=== PATIENT | female | born 1975 | race Caucasian/White ===

== ENCOUNTER 2018-12-01 19:28 | Observation (INO) ==
--- NOTE | 2018-12-01 19:41 | Emergency Department Note ---
Disposition Clinical Impression: Syncope Disposition: Admitted As Inpatient Condition: Good Time of Disposition: 18:45 General Adult HPI - General Chief complaint: ED Syncope Stated complaint: syncope Time Seen by Provider: 12/01/18 19:30 Source: patient Mode of arrival: private vehicle Limitations: no limitations Nursing Notes Reviewed: Yes Vital Signs Reviewed: Yes - History of Present Illness HPI Narrative: Patient was mowing grass today got markedly portion had an "out of body experience" and passed out. According to family she is unconscious for about a minute. Her only complaint is of her lips and oral sores she hit her lip on something. She denies any headache chest pain shortness of breath belly pain diarrhea rashes or other complaints. She says she did not usual state of health. 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 Review of Systems: As Per HPI Constitutional: Denies: fever, chills, weakness, weight change Eyes: Denies: eye pain, eye discharge, vision change ENT ED: Reports: as per HPI. Denies: ear pain, throat pain, dental pain, hearing loss, epistaxis, congestion, dysphagia Cardiovascular: Denies: chest pain, palpitations, dyspnea on exertion, edema, syncope Respiratory: Denies: cough, dyspnea, wheezes, hemoptysis, stridor Gastrointestinal: Denies: abdominal pain, nausea, vomiting, diarrhea, constipation, hematemesis, melena, hematochezia Genitourinary: Denies: dysuria, frequency, hematuria, discharge Musculoskeletal: Denies: back pain, neck pain, arthralgia, myalgia Integumentary: Denies: rash, abrasion, lesions Neurological: Denies: headache, weakness, numbness, paresthesias, confusion, abnormal gait, vertigo Psychiatric: Denies: anxiety, depression, suicidal thoughts, homicidal thoughts, auditory hallucinations, visual hallucinations Endocrine: Denies: fatigue Hematological/Lymphatic: Denies: easy bleeding, easy bruising Allergic/Immunologic: Denies: facial swelling, urticaria Past Medical History - Past Medical History Attestation: Yes The following information was validated with the patient. Source: patient, nursing notes reviewed Medical history: Reports: thyroid disease Psychiatric history: Reports: no psych history - Social History Smoking Status: Never smoker Smokeless Tobacco Status: No Alcohol use: Reports: none Drug use: Reports: none Physical Exam - General Limitations: no limitations General appearance: alert, in no apparent distress - Head Head exam: atraumatic, normocephalic, normal inspection - Eye Eye exam: Present: normal appearance, PERRL, EOMI - ENT ENT exam: other (Small abrasion to the upper lip.) - Neck Neck exam: Present: normal inspection, full ROM, trachea midline - Chest Chest inspection: Present: normal inspection, symmetric chest wall rise - Respiratory Respiratory exam: Present: normal lung sounds bilaterally - Cardiovascular Cardiovascular exam: Present: regular rate, normal rhythm, normal heart sounds - Abdominal Exam Abdominal exam: Present: soft, Non-Tender, normal bowel sounds - Extremities Exam Extremities exam: Present: normal inspection, full ROM. Absent: tenderness, pedal edema - Back Exam Back exam: Present: normal inspection, full ROM. Absent: tenderness - Neurological Exam Neurological exam: Present: alert, oriented X3 - Psychiatric Psychiatric exam: Present: normal affect, normal mood - Skin Skin exam: Present: warm, dry, intact, normal color Medical Decision Making - MDM Narrative Medical decision making narrative: I reviewed the patient's medication list. Discussed case Dr. Dhaliwal's graciously accepted admission - Lab Data Lab results reviewed: Yes I reviewed the patient's lab results. - Radiology Data Radiology results reviewed: Yes I reviewed the patient's radiology results. - EKG Data EKG #1 EKG attestation: Yes I reviewed and interpreted this EKG. EKG results narrative: EKG shows sinus rhythm rate 81 bpm WA interval is 158 ms. QRS duration 102 ms. QT QTC intervals 398 and 460 ms respectively R axis 48 degrees. No acute ischemia is appreciated.
[2018-12-01 19:59] LABS: Basophils # 0.1 K/mcL (0.0-0.2); Basophils % 0.5 %; Eosinophils # 0.1 K/mcL (0.0-0.6); Eosinophils % 0.8 %; Hematocrit 38.2 % (35.3-44.9); Hemoglobin 12.1 g/dL (11.5-15.4); Immature Granulocytes % 0.2 % (0-4); Lymphocytes # 3.3 K/mcL (0.6-4.6); Lymphocytes % 32.2 %; Mean Corpuscular HGB Conc 31.7 g/dL (31.6-35.5); Mean Corpuscular Hemoglobin 24.9 pg (28.0-33.3); Mean Corpuscular Volume 78.6 fL (83.0-100.0); Monocytes # 0.5 K/mcL (0.0-1.3); Monocytes % 4.6 %; Neutrophils # 6.4 K/mcL (1.6-8.9); Platelet Count 270 K/mcL (140-400); Red Blood Count 4.86 M/mcL (3.82-4.97); Red Cell Distribution Width 14.7 % (11.5-14.5); Segmented Neutrophils % 61.7 %; White Blood Count 10.3 K/mcL (4.3-11.1)
[2018-12-01] MEDS ORDERED: 0.9 % Sodium Chloride 1,000 ML IVC ONE (20:04)
[2018-12-01 20:18] LABS: Alanine Aminotransferase 14 Units/L (7-52); Albumin 4.2 g/dL (3.5-5.7); Albumin/Globulin Ratio 1.4 (1.1-2.2); Alkaline Phosphatase 61 Units/L (34-104); Aspartate Amino Transferase 16 Units/L (13-39); BUN/Creatinine Ratio 17 (6-26); Bilirubin,Total 0.7 mg/dL (0.3-1.0); Blood Urea Nitrogen 15 mg/dL (6-20); Calcium 9.4 mg/dL (8.6-10.3); Carbon Dioxide 23 mEq/L (23-29); Chloride 104 mEq/L (98-107); Globulin 3.1 g/dL (2.4-3.5); Glucose 113 mg/dL (70-105); Osmolality,Calculated 288 (280-300); Sodium 138 mEq/L (136-145); Total Protein 7.3 g/dL (6.4-8.9); Troponin I < 0.03 ng/mL (< 0.04); eGFR For African Americans > 60 (> 60); eGFR For Non-African Americans > 60 (> 60)
[2018-12-01 20:46] LABS: Bilirubin,Urine Negative (Negative); Blood,Urine Negative (Negative); Clarity,Urine Clear (Clear); Color,Urine Yellow (Yellow); Glucose,Urine (UA) Normal (Normal); Ketones,Urine Negative (Negative); Leukocyte Esterase,Urine Negative (Negative); Nitrite,Urine Negative (Negative); PH,Urine 7.5 pH Units (5.0-8.0); Protein,Urine 30 mg/dL (Neg-Trace); Specific Gravity,Urine 1.015 (1.010-1.025); Urobilinogen,Urine Normal (Normal)
[2018-12-01 20:51] LABS: Bacteria,Urine Few per hpf (None-Few); Hyaline Casts,Urine Few per lpf (None-Few); Mucus,Urine Moderate (Few); Squamous Epithelial Cell,Urine Few per lpf (None-Few)
[2018-12-01 20:55] LABS: Amphetamine Screen,Urine Negative ng/mL (Cutoff=1000); Barbiturate Screen,Urine Negative ng/mL (Cutoff=200); Benzodiazepines Screen,Urine Negative ng/mL (Cutoff=200); Cannabinoid Screen,Urine Negative ng/mL (Cutoff = 50); Cocaine Screen,Urine Negative ng/mL (Cutoff= 300); Opiate Screen,Urine Negative ng/mL (Cutoff=300); Phencyclidine Screen,Urine Negative ng/mL (Cutoff=25)
[2018-12-01] MEDS ORDERED: Potassium Chloride Elixir 20 MEQ/15 ML UDC PO ONE (21:08)
[2018-12-01] MEDS: Methocarbamol 500 MG TABLET PO SCH (22:56)
[2018-12-01] MEDS ORDERED: 0.9 % Sodium Chloride 1,000 ML IVC SCH (22:56)
[2018-12-01] MEDS ORDERED: Naloxone 0.4 MG/ML INJ IVP PRN (22:56)
[2018-12-02] MEDS: Methocarbamol 500 MG TABLET PO SCH (09:36)
[2018-12-02 15:17] VITALS: BP 115/78
--- NOTE | 2018-12-02 15:17 | Internal Med History&Physical ---
Date of Encounter: 12/02/18 Time of Encounter: 14:30 Assessment and Plan (1) Syncope Current visit: Yes Status: Acute Suspect vasovagal etiology. No neurologic deficit at present time. Continue to monitor. Qualifiers: Syncope type: unspecified Qualified Code(s): R55 - Syncope and collapse (2) Hypokalemia Current visit: Yes Status: Acute Etiology not obvious. She received supplemental potassium in emergency room. Repeat labs will be ordered. (3) Microcytosis Current visit: Yes Status: Acute Present on 10/25/2015 labs. Iron studies will be ordered. Internal Medicine - H&P: HPI Chief complaint: Syncope Admitted From: Emergency Dept Plans for Post Hospital Care: Home History of present illness: Ms. Park is a 43 year old female who came to emergency room after experiencing a syncopal episode at home. She reports she had unloaded approximately 12 bags of mulch from her vehicle when she began feeling lightheaded/near syncopal. She states she sat down to see if she would improve. She had a syncopal episode and awakened approximately 30 feet away on her porch. She does not recall moving from her seated position to the porch. She got the attention of family members inside the home and she was brought into the house. She reports feeling extremely weak. She was brought to emergency room and evaluated and was found to have hypokalemia and microcytosis. 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 He was admitted to [facility] floor for ongoing care needs. She states she feels improved at the present time and near her baseline except she still has sensation of weakness in her legs on ambulation. She denies vomiting or diarrhea. She denies previous syncopal or near syncopal episodes. She denies loss of bowel or bladder control with the syncopal episode. She denies history of seizures. Cardiovascular history is negative for hypertension [place] heart failure angina DVT arrhythmias or pulmonary embolus. Past Med Surg Social Fam HX - Past Medical History Medical history: thyroid disease Psychiatric history: no psych history - Social History Smoking Status: Never smoker Smokeless Tobacco Status: No Alcohol use: none Drug use: none - Family History Father Living Status: Still Living Hx Family Cancer: Yes (prostate) Grandmother Living Status: Hx Family Cardiac Disorders: Yes (CHF) Internal Medicine - H&P: Meds Ketorolac [Toradol] 10 mg PO Q8H #21 tablet 10/25/15 [Rx] Methocarbamol [Robaxin] 500 mg PO Q8HR #21 tablet 10/25/15 [Rx] Allergy/AdvReac Type Severity Reaction Status Date / Time Sulfa (Sulfonamide AdvReac Hives Verified 10/25/15 18:39 Antibiotics) All Systems PM: A 10-system review of systems was performed and is negative for pertinent findings except as documented above in the HPI. Review of systems: Gen.: She states her weight has been stable for several months Cardiovascular: As per history of present illness Respiratory: She is a lifelong nonsmoker and denies chronic lung disease GI: She denies disorders of her liver gallbladder or exocrine pancreas : She denies hematuria dysuria or kidney stones Neurologic: As per history of present illness Endocrine: She was told many years ago she had a "thyroid problem" but does not know details. TSH was normal in emergency room. She denies diabetes or hyperlipidemia Hematology/oncology: She denies blood disorders cancers or anemia Psychiatric: She denies anxiety depression or other mental health issues [place] skeletal: She denies arthritis gout or other bone joint or muscle disorders. - Constitutional Vitals: Temp Pulse Resp BP Pulse Ox 98.0 F 68 17 121/83 98 12/02/18 12:16 12/02/18 12:16 12/02/18 12:16 12/02/18 12:16 12/02/18 12:16 Exam: Gen.: She is a well-developed overweight female lying in bed who appears in no acute distress at present time HEENT: Head is atraumatic and normocephalic. Eyes: EOMI. There is no scleral icterus. Mouth: Mucosa is moist. Neck: Supple and nontender. There is no thyromegaly or adenopathy noted. Heart: Regular without murmurs gallops or ectopics Lungs: No wheezes or crackles are heard. Abdomen: Soft and nontender. No masses or guarding are noted. Extremities: There is no cyanosis edema or clubbing noted. Dorsalis pedis and posterior tibial pulses are 1-2 over 2 bilaterally. Neurologic: Mental status: She is talkative and a good historian. Cranial nerves: Smile is symmetric. Forehead wrinkles bilaterally. Tongue protrudes midline. EOMI. Motor: There is no pronator drift. Ankle flexion and extension strength against resistance is 2/2 bilaterally. She moves her arms well to random observation. Cerebellar: Finger to nose is intact bilaterally. Skin: Warm and dry. Internal Med - H&P Results - Labs CBC & Chem 7: 12/01/18 19:50 12/01/18 19:50 Labs: Short CBC 12/01/18 Range/Units 19:50 WBC 10.3 (4.3-11.1) K/mcL Hgb 12.1 (11.5-15.4) g/dL Hct 38.2 (35.3-44.9) % Plt Count 270 (140-400) K/mcL Neutrophils # 6.4 (1.6-8.9) K/mcL BMP 12/01/18 19:50 Sodium 138 Potassium 3.0 L Chloride 104 Carbon Dioxide 23 BUN 15 Creatinine 0.86 Glucose 113 H Calcium 9.4 Cardiac Enzymes 12/01/18 Range/Units 19:50 Troponin I < 0.03 (< 0.04) ng/mL Liver Function 12/01/18 Range/Units 19:50 Total Bilirubin 0.7 (0.3-1.0) mg/dL AST 16 (13-39) Units/L ALT 14 (7-52) Units/L Alkaline Phosphatase 61 (34-104) Units/L Albumin 4.2 (3.5-5.7) g/dL Urine 12/01/18 Range/Units 20:40 Urine Color Yellow (Yellow) Urine Clarity Clear (Clear) Urine pH 7.5 (5.0-8.0) pH Units Ur Specific [place] 1.015 (1.010-1.025) Urine Protein 30 H (Neg-Trace) mg/dL Urine Glucose (UA) Normal (Normal) mg/dL - Impressions ITS Impressions Chest X-Ray 12/01/18 19:35 IMPRESSION: No acute cardiopulmonary abnormality identified. 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 D/ / Audrey Hill MD / Audrey Hill MD Interpreting Provider: Audrey Hill MD
[2018-12-02 15:21] LABS: Basophils % 0.4 %; Eosinophils # 0.1 K/mcL (0.0-0.6); Eosinophils % 0.7 %; Hemoglobin 12.5 g/dL (11.5-15.4); Immature Granulocytes % 0.1 % (0-4); Lymphocytes # 2.2 K/mcL (0.6-4.6); Lymphocytes % 29.6 %; Mean Corpuscular HGB Conc 31.3 g/dL (31.6-35.5); Mean Corpuscular Hemoglobin 24.8 pg (28.0-33.3); Mean Corpuscular Volume 79.4 fL (83.0-100.0); Mean Platelet Volume 9.9 fL (9.4-12.4); Monocytes # 0.4 K/mcL (0.0-1.3); Neutrophils # 4.6 K/mcL (1.6-8.9); Platelet Count 312 K/mcL (140-400); Red Blood Count 5.04 M/mcL (3.82-4.97); Red Cell Distribution Width 15.1 % (11.5-14.5); Segmented Neutrophils % 63.2 %; White Blood Count 7.3 K/mcL (4.3-11.1)
[2018-12-02 15:56] LABS: BUN/Creatinine Ratio 15 (6-26); Blood Urea Nitrogen 9 mg/dL (6-20); Calcium 9.2 mg/dL (8.6-10.3); Carbon Dioxide 25 mEq/L (23-29); Chloride 105 mEq/L (98-107); Glucose 97 mg/dL (70-105); Magnesium 2.1 mg/dL (1.6-2.6); Osmolality,Calculated 287 (280-300); Potassium 3.9 mEq/L (3.5-5.1); Sodium 139 mEq/L (136-145); eGFR For African Americans > 60 (> 60); eGFR For Non-African Americans > 60 (> 60)
--- NOTE | 2018-12-02 17:17 | Discharge Summary ---
Orders not resulted at time of discharge: Pending orders 12/01/18 20:40 Culture,Urine [RM] Stat 12/02/18 15:13 Ferritin Routine Iron Profile Routine Date of Encounter: 12/02/18 Time of Encounter: 17:00 - Discharge Diagnosis (1) Syncope Priority: Primary Status: Acute Qualifiers: Syncope type: unspecified Qualified Code(s): R55 - Syncope and collapse (2) Hypokalemia Priority: Secondary Status: Resolved (3) Microcytosis Priority: Secondary Status: Acute (4) Pineal gland cyst Priority: Secondary Status: Acute Hospital course: Ms. Park is a 43 year old female who came to emergency room after experiencing a syncopal episode at home. She reports she had unloaded approximately 12 bags of mulch from her vehicle when she began feeling lightheaded/near syncopal. She states she sat down to see if she would improve. She had a syncopal episode and awakened approximately 30 feet away on her porch. She does not recall movi ng from her seated position to the porch. She got the attention of family members inside the home and she was brought into the house. She reports feeling extremely weak. She was brought to emergency room and evaluated and was found to have hypokalemia and microcytosis. 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 She was admitted to [facility] for ongoing care needs. Initial orders were written by the emergency room physician. I saw her on December 02 and performed a history and physical. She received supplemental potassium in emergency room. Repeat potassium level the afternoon of December 02 showed normalization at 3.9. Magnesium level was normal at 2.1. The etiology of her hypokalemia was not determined. Her PCP can monitor labs. I told her that the pineal cyst was unlikely to be related to her syncopal episode. Her PCP can order brain MRI with contrast as recommended by the radiologist. Ferritin and iron profile were ordered with results pending at time of discharge. Her PCP can follow-up on lab results and determine if supplemental iron is indicated. I explained to the patient that premenopausal women can become iron deficient from monthly blood loss. She had no further syncopal or near-syncopal episodes. She felt back to her baseline the afternoon of December 02 and stable for discharge home. She will follow with her PCP Raven Shrestha CNP within 1 week. - Time Spent with Patient Total time spent providing and/or coordinating discharge services: - Discharge Medications Prescriptions: Discontinued Methocarbamol [Robaxin] 500 mg PO Q8HR #21 tablet Ketorolac [Toradol] 10 mg PO Q8H #21 tablet Allergies/Adverse Reactions: Allergy/AdvReac Type Severity Reaction Status Date / Time Sulfa (Sulfonamide AdvReac Hives Verified 10/25/15 18:39 Antibiotics) Date of admission: 12/01/18 21:02 Primary care physician: Raven Shrestha - Constitutional Vitals: Temp Pulse Resp BP Pulse Ox 98.6 F 78 17 115/78 96 12/02/18 15:14 12/02/18 15:14 12/02/18 15:14 12/02/18 15:14 12/02/18 15:14 - Patient Status Disposition: Home, Self-Care Condition: Good - Discharge Instructions Follow Up With: Raven Shrestha, S[employer] REPAIRER [Primary Care Provider] - 1 week - Diet and Activity Activity: resume usual activities as tolerated Diet: advance to your usual diet
[2018-12-02 17:48] LABS: % Iron Saturation 8 % (15-50); Iron 38 mcg/dL (50-170); Transferrin 327 mg/dL (203-362)
[2018-12-02 18:06] LABS: Ferritin 16 ng/mL (10-120)
--- NOTE | 2018-12-07 15:51 | Electrocardiograph Report ---
[address] [address] Test Date: 2018-12-01 Pat Name: Ivone Park Department: EDP-12 Room: 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
== END 2018-12-02 17:50 | disposition home or self-care (01) ==
LOC: INPPIK 19:28 → EMEROOPIK 19:28 → INPPIK 22:14
PROVIDERS: ADMIT Internal Medicine; ATTEND Internal Medicine